=== PATIENT | male | born 1960 | race Caucasian/White ===

== ENCOUNTER → 2016-09-19 | Outpatient (CLI) | payer MEDICARE, OTHER | LOC: VM.CT 15:08 | PROVIDERS: ATTEND Family Medicine | DX: M25.512 Pain in left shoulder (principal) | CPT/HCPCS: 73200-LT ==

== ENCOUNTER 2017-03-19 11:23 | Emergency (ER) | payer MEDICARE, OTHER ==
--- NOTE | 2017-03-19 11:28 | EDM.PDOC ---
ED HPI GENERAL MEDICAL PROBLEM - General Chief Complaint: Abdominal Pain Stated Complaint: stomach Time Seen by Provider: 03/19/17 11:27 Source of Information: Reports: Patient, RN, RN Notes Reviewed History Limitations: Reports: No Limitations - History of Present Illness INITIAL COMMENTS - FREE TEXT/NARRATIVE: Patient presents to the ED at [facility] with an acute onset of centralized abdominal pain that started ~2 hours ago. Patient states his pain started shortly after he ate breakfast this AM. No previous abdominal injury or trauma. Patient has a history of umbilical hernia surgery several years ago. Patient complains of significant sweating. He does feel nauseated at times, but no vomiting. No diarrhea. Patient denies any chest pain. He feels somewhat SOB from the abdominal pain. Onset: Today, Sudden Onset Date: 03/19/17 Onset Time: 09:30 Duration: Constant, Getting Worse Location: Reports: Abdomen Quality: Reports: Pressure, Throbbing Severity: Severe Improves with: Reports: None Worsens with: Reports: Eating, Movement Context: Denies: Activity, Exercise, Lifting, Sick Contact, Trauma Associated Symptoms: Reports: Nausea/Vomiting Treatments STONE FINISHER: Reports: Other (see below) (none) - Related Data Allergies Allergy/AdvReac Type Severity Reaction Status Date / Time No Known Allergies Allergy Verified 03/19/17 11:30 Home Meds: Home Meds Tamsulosin HCl [Flomax] 0.4 mg PO DAILY #7 cap.er.24h 03/19/17 [Rx] ED ROS GENERAL - Review of Systems Review Of Systems: See Below Constitutional: Reports: Diaphoresis. Denies: Fever, Chills, Weakness Respiratory: Denies: Shortness of Breath, Cough Cardiovascular: Denies: Chest Pain, Palpitations GI/Abdominal: Reports: Abdominal Pain, Distension, Nausea. Denies: Black Stool , Bloody Stool, Diarrhea, Vomiting Skin: Reports: Diaphoresis Neurological: Denies: Dizziness, Headache ED EXAM, GI/ABD - Physical Exam Exam: See Below Exam Limited By: No Limitations General Appearance: Alert, Moderate Distress, Obese Respiratory/Chest: No Respiratory Distress, Lungs Clear, Decreased Breath Sounds Cardiovascular: Regular Rate, Rhythm GI/Abdominal: Hypoactive Bowel Sounds, Tenderness, Guarding, Rigidity Neurological: Alert, Oriented Skin Exam: Intact, Normal Color, No Rash, Diaphoretic EKG INTERPRETATION EKG Date: 03/19/17 Time: 11:38 Rhythm: NSR Rate (Beats/Min): 65 [place]: Normal P-Wave: Present QRS: Normal ST-T: Normal QT: Normal CT/PQ Interval: 0.18 Comparison: NA - No Prior EKG EKG Interpretation Comments: 1. Sinus Rhythm 2. IVCD (110+ mS QRS duration) Course - Vital Signs Last Recorded V/S: Last Vital Signs Temp 35.0 C L 03/19/17 12:16 Pulse 68 03/19/17 12:16 Resp 14 03/19/17 12:16 BP 130/86 03/19/17 12:16 Pulse Ox 98 03/19/17 12:16 - Orders/Labs/Meds Orders: Active Orders 24 hr Category Date Time Status EKG 12 Lead [EKG Documentation Completion] [RC] STAT Care 03/19/17 11:31 Active Abdomen Pelvis w Cont [CT] Stat Exams 03/19/17 11:32 Taken Sodium Chloride 0.9% [Normal Saline] 100 ml Med 03/19/17 12:15 Active IV ASDIRECTED Sodium Chloride 0.9% [Saline Flush] Med 03/19/17 11:33 Active 10 ml FLUSH ASDIRECTED PRN Peripheral IV Insertion Adult [OM.PC] Routine Oth 03/19/17 11:33 Ordered Medication Orders Sodium Chloride (Normal Saline) 100 mls @ 3 mls/sec IV ASDIRECTED KAREN Last Admin: 03/19/17 12:40 Dose: 3 mls/sec Sodium Chloride (Saline Flush) 10 ml FLUSH ASDIRECTED PRN PRN Reason: Keep Vein Open Labs: Laboratory Tests 03/19/17 03/19/17 03/19/17 Range/Units 11:50 11:50 11:50 WBC 5.8 (4.0-10.0) x10^3/uL RBC 4.86 (4.5-6.0) x10^6/uL Hgb 14.9 (14.0-18.0) g/dL Hct 44.0 (40.0-52.0) % MCV 90.5 (78.0-93.0) fL MCH 30.7 (26.0-32.0) pg MCHC 33.9 (32.0-36.0) g/dL RDW Coeff of Mirtha 14.2 (10.0-15.0) % Plt Count 201 (130-400) x10^3/uL Neut % (Auto) 78.6 (50.0-80.0) % Lymph % (Auto) 14.4 L (25.0-50.0) % [place] % (Auto) 4.2 (2.0-11.0) % Eos % (Auto) 2.3 (0.0-4.0) % Baso % (Auto) 0.5 (0.2-1.2) % Sodium 142 (136-145) mmol/L Potassium 4.2 (3.5-5.1) mmol/L Chloride 104 (98-107) mmol/L Carbon Dioxide 30 (21-32) mmol/L BUN 16 (7-18) mg/dL Creatinine 1.1 (0.70-1.30) mg/dL Est Cr Clr Drug Dosing TNP Estimated GFR (MDRD) > 60 Glucose 171 H (74-106) mg/dL Lactic Acid 1.1 (0.4-2.0) mmol/L Calcium 8.8 (8.5-10.1) mg/dL Corrected Calcium 8.80 (8.5-10.1) mg/dL Total Bilirubin 0.6 (0.2-1.0) mg/dL AST 24 (15-37) U/L ALT 34 (16-63) U/L Alkaline Phosphatase 95 (46-116) U/L Creatine Kinase 151 (39-308) U/L Creatine Kinase Index 1.7 (0.0-4.0) % CK-MB (CK-2) 2.5 (0.0-3.6) ng/mL POC Troponin I (0.00-0.08) ng/mL C-Reactive Protein 0.5 (<=0.9) mg/dL Total Protein 7.6 (6.4-8.2) g/dL Albumin 4.0 (3.4-5.0) g/dL Globulin 3.6 Albumin/Globulin Ratio 1.11 Amylase 44 (25-115) U/L Lipase 103 (73-393) U/L Urine Color (YELLOW) Urine Appearance (CLEAR) Urine pH (5.0-8.0) Ur Specific [place] Urine Protein (NEGATIVE) mg/dL Urine Glucose (UA) (NEGATIVE) mg/dL Urine Ketones (NEGATIVE) mg/dL Urine Occult Blood (NEGATIVE) Urine Nitrite (NEGATIVE) Urine Bilirubin (NEGATIVE) Urine Urobilinogen (0.2) EU/dL Ur Leukocyte Esterase (NEGATIVE) Urine RBC (NOT SEEN) /HPF Urine WBC (NOT SEEN) /HPF Ur Squamous Epith Cells (NEGATIVE) /HPF Urine Bacteria (NEGATIVE) /HPF Urine Mucus (NEGATIVE) /LPF 03/19/17 03/19/17 Range/Units 11:54 12:50 WBC (4.0-10.0) x10^3/uL RBC (4.5-6.0) x10^6/uL Hgb (14.0-18.0) g/dL Hct (40.0-52.0) % MCV (78.0-93.0) fL MCH (26.0-32.0) pg MCHC (32.0-36.0) g/dL RDW Coeff of Mirtha (10.0-15.0) % Plt Count (130-400) x10^3/uL Neut % (Auto) (50.0-80.0) % Lymph % (Auto) (25.0-50.0) % [place] % (Auto) (2.0-11.0) % Eos % (Auto) (0.0-4.0) % Baso % (Auto) (0.2-1.2) % Sodium (136-145) mmol/L Potassium (3.5-5.1) mmol/L Chloride (98-107) mmol/L Carbon Dioxide (21-32) mmol/L BUN (7-18) mg/dL Creatinine (0.70-1.30) mg/dL Est Cr Clr Drug Dosing Estimated GFR (MDRD) Glucose (74-106) mg/dL Lactic Acid (0.4-2.0) mmol/L Calcium (8.5-10.1) mg/dL Corrected Calcium (8.5-10.1) mg/dL Total Bilirubin (0.2-1.0) mg/dL AST (15-37) U/L ALT (16-63) U/L Alkaline Phosphatase (46-116) U/L Creatine Kinase (39-308) U/L Creatine Kinase Index (0.0-4.0) % CK-MB (CK-2) (0.0-3.6) ng/mL POC Troponin I 0.00 (0.00-0.08) ng/mL C-Reactive Protein (<=0.9) mg/dL Total Protein (6.4-8.2) g/dL Albumin (3.4-5.0) g/dL Globulin Albumin/Globulin Ratio Amylase (25-115) U/L Lipase (73-393) U/L Urine Color Dark yellow H (YELLOW) Urine Appearance Slightly cloudy H (CLEAR) Urine pH 5.5 (5.0-8.0) Ur Specific [place] >=1.030 Urine Protein Negative (NEGATIVE) mg/dL Urine Glucose (UA) Negative (NEGATIVE) mg/dL Urine Ketones Trace H (NEGATIVE) mg/dL Urine Occult Blood Small H (NEGATIVE) Urine Nitrite Negative (NEGATIVE) Urine Bilirubin Negative (NEGATIVE) Urine Urobilinogen 0.2 (0.2) EU/dL Ur Leukocyte Esterase Negative (NEGATIVE) Urine RBC 0-5 (NOT SEEN) /HPF Urine WBC 0-5 (NOT SEEN) /HPF Ur Squamous Epith Cells Not seen (NEGATIVE) /HPF Urine Bacteria Not seen (NEGATIVE) /HPF Urine Mucus Many H (NEGATIVE) /LPF Meds: Medications Generic Name Dose Route Start Last Admin Trade Name Freq PRN Reason Stop Dose Admin Sodium Chloride 100 mls @ 3 mls/sec 03/19/17 12:15 03/19/17 12:40 Normal Saline IV 3 mls/sec ASDIRECTED KAREN Administration Sodium Chloride 10 ml 03/19/17 11:33 Saline Flush FLUSH ASDIRECTED PRN Keep Vein Open Discontinued Medications Generic Name Dose Route Start Last Admin Trade Name Freq PRN Reason Stop Dose Admin Sodium Chloride 1,000 mls @ 999 mls/hr 03/19/17 11:33 03/19/17 11:49 Normal Saline IV 03/19/17 12:33 999 mls/hr ONETIME ONE Administration Iopamidol 100 ml 03/19/17 12:08 03/19/17 12:39 Isovue-300 (61%) IVPUSH 03/19/17 12:09 100 ml ONETIME ONE Administration Metoclopramide HCl 10 mg 03/19/17 11:33 03/19/17 11:50 Reglan IVPUSH 03/19/17 11:34 10 mg ONETIME ONE Administration Morphine Sulfate 2 mg 03/19/17 11:34 03/19/17 11:51 Morphine IVPUSH 03/19/17 11:35 2 mg ONETIME ONE Administration Ondansetron HCl 4 mg 03/19/17 11:33 03/19/17 11:49 Zofran IVPUSH 03/19/17 11:34 4 mg ONETIME ONE Administration - Radiology Interpretation Free Text/Narrative:: CT Abd/Pelvis: 4mm distal right ureteral calculus at the UVJ with mild hydronephrosis - See scanned report in EMR CT Results Date: 03/19/17 CT Results Time: 13:56 Departure - Departure Time of Disposition: 14:07 Disposition: Home, Self-Care 01 Condition: Good Clinical Impression: Kidney stone on right side - Discharge Information Instructions: Kidney Stones, Low-Purine Diet Referrals: Luis E Cole MD [Physician] - Forms: ED Department Discharge Additional Instructions: 1. Stay well hydrated and rest 2. Take medications for the full coarse, even if you are feeling better 3. Eat a low-purine diet 4. Avoid Advil/Aleve; use Tylenol and pain meds as needed 5. See your Primary next week for a follow up exam and testing - Problem List Review Problem List Initiated/Reviewed/Updated: Yes - My Orders Last 24 Hours: My Active Orders 03/19/17 11:31 EKG 12 Lead [EKG Documentation Completion] [RC] STAT 03/19/17 11:32 Abdomen Pelvis w Cont [CT] Stat 03/19/17 11:33 Sodium Chloride 0.9% [Saline Flush] 10 ml FLUSH ASDIRECTED PRN Peripheral IV Insertion Adult [OM.PC] Routine 03/19/17 12:15 Sodium Chloride 0.9% [Normal Saline] 100 ml IV ASDIRECTED - Assessment/Plan Last 24 Hours: My Active Orders 03/19/17 11:31 EKG 12 Lead [EKG Documentation Completion] [RC] STAT 03/19/17 11:32 Abdomen Pelvis w Cont [CT] Stat 03/19/17 11:33 Sodium Chloride 0.9% [Saline Flush] 10 ml FLUSH ASDIRECTED PRN Peripheral IV Insertion Adult [OM.PC] Routine 03/19/17 12:15 Sodium Chloride 0.9% [Normal Saline] 100 ml IV ASDIRECTED
[2017-03-19] MEDS ORDERED: Metoclopramide 10 MG/2 ML SDV IVPUSH ONE (11:33)
[2017-03-19] MEDS ORDERED: Ondansetron 4 MG/2 ML SDV IVPUSH ONE (11:33)
[2017-03-19] MEDS ORDERED: Sodium Chloride 0.9% 1,000 ML IV ONE (11:33)
[2017-03-19] MEDS ORDERED: Sodium Chloride 0.9% 10 ML Syringe FLUSH PRN (11:33)
[2017-03-19] MEDS ORDERED: Morphine 2 MG/ML Syringe IVPUSH ONE (11:34)
[2017-03-19] MEDS ORDERED: Iopamidol 612 MG/ML 100 ML Bottle IVPUSH ONE (12:08)
[2017-03-19] MEDS ORDERED: Sodium Chloride 0.9% 100 ML IV SCH (12:15)
[2017-03-19 12:17] VITALS: BP 130/86
[2017-03-19 12:28] LABS: CHLORIDE,CL 104 mmol/L (98-107); SODIUM,NA 142 mmol/L (136-145)
[2017-03-19] MEDS ORDERED: Take Home: traMADol 50 MG, 4 Tab Pack PO ONE (14:10)
[2017-03-19] MEDS ORDERED: Tamsulosin 0.4 MG Cap.ER ONE (14:21)
== END 2017-03-19 14:26 | disposition home or self-care (01) ==
LOC: VM.ED 11:23
DX: N13.2 Hydronephrosis with renal and ureteral calculous obstruction (principal); Z87.19 Personal history of other diseases of the digestive system; R06.02 Shortness of breath; Z79.899 Other long term (current) drug therapy
CPT/HCPCS: 36415; 74177; 80053; 81001; 82150; 82550; 82553; 83605; 83690; 84484; 85025; 86140; 93005; 96361; 96374; 96375; 99284; A9270; J2270; J2405; J2765; J7030; J7050; Q9967

== ENCOUNTER 2021-04-24 06:00 | Emergency (ER) | payer OTHER, MEDICARE ==
[2021-04-24] MEDS ORDERED: Sodium Chloride 0.9% 10 ML Syringe FLUSH PRN (06:29)
--- NOTE | 2021-04-24 06:41 | EDM.PDOC ---
<Miriam Franco - Last Filed: 04/24/21 06:42> ED HPI GENERAL MEDICAL PROBLEM - General Chief Complaint: Neuro Symptoms/Deficits Stated Complaint: dizzy Time Seen by Provider: 04/24/21 06:19 Source of Information: Reports: Patient History Limitations: Reports: No Limitations - History of Present Illness INITIAL COMMENTS - FREE TEXT/NARRATIVE: Patient comes into the emergency department on his own with complaints of dizziness and falling down this morning. Patient states that he was not feeling well when he woke up this morning called his boss however his boss had stated that he did need to come in. He states that he did get dressed and ready for work and drove to work when he was trying to get out of his vehicle to get another vehicle with a coronado he ended up falling on the ground because he Became extremely dizzy, blurred vision, and fell over. It is unknown how long the patient has not been feeling well. When asking the patient he states that he did not feel well last night when he went to bed. While in another conversation the patient states that he felt well when he woke up. Patient does not have any family or close relatives with him today to understand patient's baseline. Patient denies any pain, chest pain, active shortness of breath, Nausea, vomiting, genitourinary concerns, peripheral edema. Patient states he is been relatively healthy and has no other major concerns or complaints. Quality: Reports: Other Severity: Mild Improves with: Reports: None Worsens with: Reports: None Associated Symptoms: Reports: No Other Symptoms - Related Data Allergies Allergy/AdvReac Type Severity Reaction Status Date / Time No Known Allergies Allergy Verified 04/24/21 08:13 Home Meds: Home Meds Insulin Glargine,Hum.Rec.Anlog [Touarti Solostar] 24 unit SQ DAILY 04/24/21 [History] Meclizine [Antivert] 25 mg PO TID PRN #15 tab 04/24/21 [Rx] Past Medical History - Past Health History Medical/Surgical History: Denies Medical/Surgical History ED ROS GENERAL - Review of Systems Review Of Systems: Comprehensive ROS is negative, except as noted in HPI. Constitutional: Reports: No Symptoms HEENT: Reports: No Symptoms Respiratory: Reports: No Symptoms Cardiovascular: Reports: No Symptoms Endocrine: Reports: No Symptoms GI/Abdominal: Reports: No Symptoms : Reports: No Symptoms Musculoskeletal: Reports: No Symptoms Skin: Reports: No Symptoms Neurological: Reports: Dizziness, Headache, Trouble Speaking (unknown what is normal) Psychiatric: Reports: No Symptoms Hematologic/Lymphatic: Reports: No Symptoms Immunologic: Reports: No Symptoms ED EXAM, GENERAL - Physical Exam Exam: See Below General Appearance: Alert, WD/WN, No Apparent Distress Eye Exam: Bilateral Eye: EOMI, PERRL Ears: Normal External Exam, Normal Canal Ear Exam: Bilateral Ear: Auricle Normal, Canal Normal, TM normal Head: Atraumatic, Normocephalic Neck: Normal Inspection, Supple, Non-Tender, Full Range of Motion Respiratory/Chest: No Respiratory Distress, Lungs Clear, Normal Breath Sounds, No Accessory Muscle Use, Chest Non-Tender Cardiovascular: Normal Peripheral Pulses, Regular Rate, Rhythm, No Edema Back Exam: Normal Inspection, Full Range of Motion Extremities: Normal Inspection, Normal Range of Motion, Non-Tender, No Pedal Edema, Normal Capillary Refill Neurological: Alert, Oriented Psychiatric: Normal Affect, Normal Mood Skin Exam: Warm, Dry, Intact, Normal Color #1 Interpretation Rhythm: NSR [place]: Normal P-Wave: Present QRS: Normal ST-T: Normal QT: Normal Comparison: NA - No Prior EKG Departure - Departure Disposition: Home, Self-Care 01 Clinical Impression: Dehydration, Hyperglycemia due to diabetes mellitus, Hypokalemia - Discharge Information Prescriptions: Meclizine [Antivert] 25 mg PO TID PRN #15 tab PRN Reason: Dizziness Instructions: Hypokalemia, Dehydration, Adult, [id number], Hyperglycemia, [id number], Dizziness Referrals: Jose Rafael Joaquin PA-C [Primary Care Provider] - (You have an appointment to day at 4:30. Arrive a few minutes early and wear a mask. ) Forms: ED Department Discharge, ED Return to Work/School Form Additional Instructions: You were evaluated today for dizziness with labs, urine and head CT scan. You did not have a stroke. It was found that your thyroid is slightly elevated and T3 and T4 test are pending. You were dehydrated and your glucose was high along with your potassium being slightly low. We gave you two liters of fluid, 20 meq of oral potassium and meclizine for the dizziness. You are given a prescription of meclizine to be taken three times a day as needed for dizziness. You need to drink more fluids. rest today and tomorrow and can return to work if feeling better on Saturday. You have an appointment with your PA, Jose Rafael today at 4:30 at the clinic. Take the copy of your labs with. You need to restart your medications as determined by Jose Rafael and do not stop them again. - Assessment/Plan Assessment:: 1. stroke code 2. dizzy 3. Blurred vision Plan: 1. Stroke code 2. Labs completed in the ER. Results reviewed with the patient 3. IV initiated in the emergency department 4. NIH Scale- [address] scan of head completed in ER. Results reviewed 6. Report Completed with Maria Fernanda DUNCAN who will assume care <Maria Fernanda Cohn - Last Filed: 04/24/21 08:33> ED HPI GENERAL MEDICAL PROBLEM - History of Present Illness INITIAL COMMENTS - FREE TEXT/NARRATIVE: Change of shift and took over care at 07:00. Patient history is that he has been feeling dizzy intermittantly for the last several days. He denies any head injury, not on a blood thinner. States that the dizziness is spinning and better if he closes his eyes. Has a slight headache at the frontal area and states his vision feels blurry at times. He does state yesterday he felt ill with the dizziness, Today when he awoke and did not feel well due to the dizziness. He tried to call in ill to work but they told him to come in. 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 He managed to get out of the car, but then the dizziness made his fall over. Called his co worker and they helped him get into his car and he drove here. States he has been taking his diabetes medications, but can not test his blood sugar due to broken meter. Has not seen his physician in over a year or taken other medications due to concerns for Covid 19. He has not had covid, nor had the vaccine. He states he feels his speech is baseline, always struggles with some words and talks with a lisp. Oriented x 4. main concern is the dizziness Improves with: Reports: Other (closing his eyes) Worsens with: Reports: Movement Associated Symptoms: Reports: Headaches Past Medical History HEENT History: Reports: Hard of Hearing, Sinusitis Cardiovascular History: Reports: High Cholesterol, Hypertension, Other (See Below) (varicose veins) Respiratory History: Reports: Other (See Below) (daiphragmatic hernia) Gastrointestinal History: Reports: Diverticulosis, GERD, PUD Musculoskeletal History: Reports: Other (See Below) (left rotator cuff tear) Neurological History: Reports: Other (See Below) (intellectual disability, history of dizziness) Endocrine/Metabolic History: Reports: Diabetes, Type II - Past Surgical History GI Surgical History: Reports: Colonoscopy, EGD, Hernia, Abdominal (umbilical) Musculoskeletal Surgical History: Reports: Arthroscopic Procedure (left shoulder x 2), Other (See Below) (rigth plantar fasciotomy) Other Musculoskeletal Surgeries/Procedures:: laset of left greater saphneous vein Social & Family History - Tobacco Use Tobacco Use Status *Q: Never Tobacco User - Alcohol Use Alcohol Use History: No Alcohol Use in Last Twelve Months: No - Recreational Drug Use Recreational Drug Use: No Drug Use in Last 12 Months: No - Living Situation & Occupation Living situation: Reports: Single, Alone Occupation: Employed ED EXAM, GENERAL - Physical Exam Eye Exam: Bilateral Eye: EOMI, Normal Inspection, PERRL, Other (no nystagmus) Ears: Normal TMs, Hearing Loss Nose: Normal Inspection, Normal Mucosa Throat/Mouth: Normal Inspection, Normal Lips, Normal Teeth, Normal Voice, Other (mild dry mucous membranes) Head: Atraumatic, Normocephalic. No: Sinus Tenderness Neck: Normal Inspection, Supple, Non-Tender, Full Range of Motion Respiratory/Chest: No Respiratory Distress, Lungs Clear, Normal Breath Sounds, No Accessory Muscle Use, Chest Non-Tender Cardiovascular: Normal Peripheral Pulses, Regular Rate, Rhythm, No Edema Peripheral Pulses: 4+: Carotid (L), Carotid (R), Brachial (L), Brachial (R) GI/Abdominal: Normal Bowel Sounds, Soft, Non-Tender, No Organomegaly, No Distention, No Abnormal Bruit, No Mass. No: Rigid, Rebound (Male) Exam: Deferred Back Exam: Normal Inspection, Full Range of Motion, Other. No: CVA Tenderness (L), CVA Tenderness (R) Extremities: Normal Inspection, Normal Range of Motion, No Pedal Edema, Normal Capillary Refill, Other (normal cook fruit strength in the upper extremities, normal push pull, normal opposition thumb to second and fifth finger. normal strength in the lower extremities, normal plantar and dorsiflexion bialterally) Neurological: Alert, Oriented (x 4), CN II-XII Intact (very minimal right cheek weakness to puffing out cheeks, no facial droop at 07:00), Other (speech is with a lisp, patient states is normal. STates he struggles with word finding at times. Unable to repeat " no if's ands or buts" and " you can't teach an old dog new tricks". Normal sensation to light touch bilaterally.). No: Sensory/Motor Deficit (pronator drift with mild left arm drift however IV in the AC here, normal finger to nose with eyes closed, normal JUAN, normal heel to gutierrez) Psychiatric: Normal Affect, Normal Mood Skin Exam: Warm, Dry, Intact, Normal Color #1 Interpretation EKG Date: 04/24/21 Time: 06:01 Rate (Beats/Min): 74 QRS: Other (slight delay, Not bundle branch) Course - Orders/Labs/Meds Orders: Active Orders 24 hr Category Date Time Status Assess Neurological Status [RC] CONTINUOUS Care 04/24/21 06:29 Active Blood Glucose Check, Bedside [RC] STAT Care 04/24/21 06:29 Active Cardiac Monitoring [RC] CONTINUOUS Care 04/24/21 06:29 Active Communication Order [RC] STAT Care 04/24/21 06:29 Active EKG Documentation Completion [RC] STAT Care 04/24/21 06:28 Active Height and Weight [RC] UPON Care 04/24/21 06:29 Active NIH Stroke Scale [RC] Q15M Care 04/24/21 06:29 Active NIH Stroke Scale [RC] STAT Care 04/24/21 06:29 Active Oxygen Therapy, ED [RC] ASDIRECTED Care 04/24/21 06:29 Active Vital Signs [RC] Q15M Care 04/24/21 06:29 Active Ang Neck [CT] Stat Exams 04/24/21 Ordered FREE T3 [REF] Stat Lab 04/24/21 06:16 Received OSMOLALITY - URINE Stat Lab 04/24/21 07:30 Received THYROXINE (T4) [REF] Stat Lab 04/24/21 06:16 Received Sodium Chloride 0.9% [Normal Saline] 1,000 ml Med 04/24/21 08:00 Active IV ASDIRECTED Sodium Chloride 0.9% [Saline Flush] Med 04/24/21 06:29 Active 10 ml FLUSH ASDIRECTED PRN Peripheral IV Insertion Adult [OM.PC] Stat Oth 04/24/21 06:28 Ordered Resuscitation Status Stat Resus Stat 04/24/21 06:29 Ordered Medication Orders Sodium Chloride (Normal Saline) 1,000 mls @ 1,000 mls/hr IV ASDIRECTED KAREN Last Admin: 04/24/21 08:04 Dose: 1,000 mls/hr Documented by: EULALIA Sodium Chloride (Sodium Chloride 0.9% 10 Ml Syringe) 10 ml FLUSH ASDIRECTED PRN PRN Reason: Keep Vein Open Labs: Laboratory Tests 04/24/21 04/24/21 04/24/21 Range/Units 06:16 06:16 06:16 WBC 3.6 L (4.0-10.0) x10^3/uL RBC 4.95 (4.5-6.0) x10^6/uL Hgb 15.5 (14.0-18.0) g/dL Hct 43.9 (40.0-52.0) % MCV 88.7 (78.0-93.0) fL MCH 31.3 (26.0-32.0) pg MCHC 35.3 (32.0-36.0) g/dL RDW Coeff of Mirtha 13.9 (10.0-15.0) % Plt Count 202 (130-400) x10^3/uL Neut % (Auto) 58.0 (50.0-80.0) % Lymph % (Auto) 29.7 (25.0-50.0) % Wayne % (Auto) 8.1 (2.0-11.0) % Eos % (Auto) 3.6 (0.0-4.0) % Baso % (Auto) 0.6 (0.2-1.2) % PT 9.8 L (9.9-12.5) SEC INR 0.9 L (2.0-3.5) APTT (25.6-32.8) SEC Sodium 135 L (136-145) mmol/L Potassium 3.3 L (3.5-5.1) mmol/L Chloride 101 (98-107) mmol/L Carbon Dioxide 27 (21-32) mmol/L Anion Gap 10.3 (5-15) mmol/L BUN 8 (7-18) mg/dL Creatinine 0.8 (0.70-1.30) mg/dL Est Cr Clr Drug Dosing TNP Estimated GFR (MDRD) > 60 Glucose 301 H (70-99) mg/dL POC Glucose (70-99) mg/dL Calcium 8.2 L (8.5-10.1) mg/dL Corrected Calcium 8.6 (8.5-10.1) mg/dL Total Bilirubin 0.8 (0.2-1.0) mg/dL AST 21 (15-37) U/L ALT 26 (16-63) U/L Alkaline Phosphatase 124 H (46-116) U/L Troponin I High Sens 8 (<=76) ng/L Total Protein 7.0 (6.4-8.2) g/dL Albumin 3.5 (3.4-5.0) g/dL Globulin 3.5 Albumin/Globulin Ratio 1.00 TSH, Ultra Sensitive (0.358-3.74) uIU/mL Urine Color (YELLOW) Urine Appearance (CLEAR) Urine pH (5.0-8.0) Ur Specific [place] Urine Protein (NEGATIVE) mg/dL Urine Glucose (UA) (NEGATIVE) mg/dL Urine Ketones (NEGATIVE) mg/dL Urine Occult Blood (NEGATIVE) Urine Nitrite (NEGATIVE) Urine Bilirubin (NEGATIVE) Urine Urobilinogen (0.2) EU/dL Ur Leukocyte Esterase (NEGATIVE) 04/24/21 04/24/21 04/24/21 Range/Units 06:16 06:16 06:21 WBC (4.0-10.0) x10^3/uL RBC (4.5-6.0) x10^6/uL Hgb (14.0-18.0) g/dL Hct (40.0-52.0) % MCV (78.0-93.0) fL MCH (26.0-32.0) pg MCHC (32.0-36.0) g/dL RDW Coeff of Mirtha (10.0-15.0) % Plt Count (130-400) x10^3/uL Neut % (Auto) (50.0-80.0) % Lymph % (Auto) (25.0-50.0) % Wayne % (Auto) (2.0-11.0) % Eos % (Auto) (0.0-4.0) % Baso % (Auto) (0.2-1.2) % PT (9.9-12.5) SEC INR (2.0-3.5) APTT 23.6 L (25.6-32.8) SEC Sodium (136-145) mmol/L Potassium (3.5-5.1) mmol/L Chloride (98-107) mmol/L Carbon Dioxide (21-32) mmol/L Anion Gap (5-15) mmol/L BUN (7-18) mg/dL Creatinine (0.70-1.30) mg/dL Est Cr Clr Drug Dosing Estimated GFR (MDRD) Glucose (70-99) mg/dL POC Glucose 285 H (70-99) mg/dL Calcium (8.5-10.1) mg/dL Corrected Calcium (8.5-10.1) mg/dL Total Bilirubin (0.2-1.0) mg/dL AST (15-37) U/L ALT (16-63) U/L Alkaline Phosphatase (46-116) U/L Troponin I High Sens (<=76) ng/L Total Protein (6.4-8.2) g/dL Albumin (3.4-5.0) g/dL Globulin Albumin/Globulin Ratio TSH, Ultra Sensitive 3.806 H (0.358-3.74) uIU/mL Urine Color (YELLOW) Urine Appearance (CLEAR) Urine pH (5.0-8.0) Ur Specific [place] Urine Protein (NEGATIVE) mg/dL Urine Glucose (UA) (NEGATIVE) mg/dL Urine Ketones (NEGATIVE) mg/dL Urine Occult Blood (NEGATIVE) Urine Nitrite (NEGATIVE) Urine Bilirubin (NEGATIVE) Urine Urobilinogen (0.2) EU/dL Ur Leukocyte Esterase (NEGATIVE) 04/24/21 Range/Units 07:30 WBC (4.0-10.0) x10^3/uL RBC (4.5-6.0) x10^6/uL Hgb (14.0-18.0) g/dL Hct (40.0-52.0) % MCV (78.0-93.0) fL MCH (26.0-32.0) pg MCHC (32.0-36.0) g/dL RDW Coeff of Mirtha (10.0-15.0) % Plt Count (130-400) x10^3/uL Neut % (Auto) (50.0-80.0) % Lymph % (Auto) (25.0-50.0) % [place] % (Auto) (2.0-11.0) % Eos % (Auto) (0.0-4.0) % Baso % (Auto) (0.2-1.2) % PT (9.9-12.5) SEC INR (2.0-3.5) APTT (25.6-32.8) SEC Sodium (136-145) mmol/L Potassium (3.5-5.1) mmol/L Chloride (98-107) mmol/L Carbon Dioxide (21-32) mmol/L Anion Gap (5-15) mmol/L BUN (7-18) mg/dL Creatinine (0.70-1.30) mg/dL Est Cr Clr Drug Dosing Estimated GFR (MDRD) Glucose (70-99) mg/dL POC Glucose (70-99) mg/dL Calcium (8.5-10.1) mg/dL Corrected Calcium (8.5-10.1) mg/dL Total Bilirubin (0.2-1.0) mg/dL AST (15-37) U/L ALT (16-63) U/L Alkaline Phosphatase (46-116) U/L Troponin I High Sens (<=76) ng/L Total Protein (6.4-8.2) g/dL Albumin (3.4-5.0) g/dL Globulin Albumin/Globulin Ratio TSH, Ultra Sensitive (0.358-3.74) uIU/mL Urine Color Yellow (YELLOW) Urine Appearance Clear (CLEAR) Urine pH 7.0 (5.0-8.0) Ur Specific [place] 1.015 Urine Protein Negative (NEGATIVE) mg/dL Urine Glucose (UA) 500 H (NEGATIVE) mg/dL Urine Ketones 15 H (NEGATIVE) mg/dL Urine Occult Blood Negative (NEGATIVE) Urine Nitrite Negative (NEGATIVE) Urine Bilirubin Negative (NEGATIVE) Urine Urobilinogen 2.0 H (0.2) EU/dL Ur Leukocyte Esterase Negative (NEGATIVE) Meds: Medications Generic Name Dose Route Start Last Admin Trade Name Carol PRN Reason Stop Dose Admin Sodium Chloride 1,000 mls @ 1,000 mls/hr 04/24/21 08:00 04/24/21 08:04 Normal Saline IV 1,000 mls/hr ASDIRECTED KAREN Administration Sodium Chloride 10 ml 04/24/21 06:29 Sodium Chloride 0.9% 10 Ml Syringe FLUSH ASDIRECTED PRN Keep Vein Open Discontinued Medications Generic Name Dose Route Start Last Admin Trade Name Freq PRN Reason Stop Dose Admin Sodium Chloride 1,000 mls @ 1,000 mls/hr 04/24/21 06:54 04/24/21 06:55 Normal Saline IV 04/24/21 07:53 1,000 mls/hr ONETIME ONE Administration Meclizine HCl 25 mg 04/24/21 07:22 04/24/21 07:39 Meclizine 25 Mg Tab PO 04/24/21 07:23 25 mg ONETIME ONE Administration Potassium Chloride 20 meq 04/24/21 07:59 04/24/21 08:06 Potassium Chloride 10 Meq Tab.Er PO 04/24/21 08:00 20 meq ONETIME ONE Administration - Radiology Interpretation Free Text/Narrative:: Ct head non contrast, no acute, CT head angio negative and neck angio no large vessel occlusion, mild artheroscleroitc calcifications of both carotid bulbs,no stenosis , exams are limited interpreted by radiology - Re-Assessments/Exams Free Text/Narrative Re-Assessment/Exam: 04/24/21 07:10 Care taken over ath change of shift, labs already done, iv fluids started and CT done. Re examination of the patient and chart review from [facility]. Patient has not been to PCP since 04/2020. Multiple medications listed to include ozempic, insulin, atorvastatin, lisinopril, lasix, metformin, omeprazole. Daryl correa tells me he is taking is insulin only Patient has notable intellectual disability. Unsure of his baseline. Notes from [facility] find that he has been struggling with bouts of dizziness since at least early 2019. Has not dm checking his blood glucose regularly, but his A1c was >14 in 2019 and in 2019 was 7.3. Did have notable elevated lipids, but no recent check and not on medication. Patient has lisp with speech but states it is baseline. Feels he is not having speech problems. Does not have facial drop reported by previous provider. Has slight weakness of the right cheek to puffing out cheeks. left arm with slight drift, but the IV is there and he seems to struggle only due to the IV. He does have problems repeating phrases but is very hard of hearing, lip reads a bit and unsure if he is just unable to repeat such phrases on a regular basis. Will give a meclzine, Add a TSH and urine osmol and urine. continue IV fluids. Able to ambulate to the bathroom, but struggles with the gown, manages to give urine sample, but did have problems with keeping the gown out of the stream. Gait normal. 04/24/21 07:55 note initial NIH was 4 and FAST was 2 with a 30% of LVO done by previous provider. Last known well unknown. Not TPA candidate repeat NIH at 7:00 by this provider is 3 and FAst still a 2 but given history unsure of baseline. Awaiting CT angio, c head normal, labs normal with the exception of glucose. 04/24/21 08:10 Patient is doing better. Slight elevated TSH, added Free T3 and T4 for send out. will give second liter of fluid along with meclzine 25 mg po. Negative scans. Made appointment with PCP today at 4:30. Patient needs to restart medications. Departure - Departure Time of Disposition: 08:40 Condition: Good - Discharge Information *PRESCRIPTION DRUG MONITORING PROGRAM REVIEWED*: Not Applicable *COPY OF PRESCRIPTION DRUG MONITORING REPORT IN PATIENT KENRICK: Not Applicable - My Orders Last 24 Hours: My Active Orders 04/24/21 06:16 FREE T3 [REF] Stat THYROXINE (T4) [REF] Stat 04/24/21 07:30 OSMOLALITY - URINE Stat 04/24/21 08:00 Sodium Chloride 0.9% [Normal Saline] 1,000 ml IV ASDIRECTED - Assessment/Plan Last 24 Hours: My Active Orders 04/24/21 06:16 FREE T3 [REF] Stat THYROXINE (T4) [REF] Stat 04/24/21 07:30 OSMOLALITY - URINE Stat 04/24/21 08:00 Sodium Chloride 0.9% [Normal Saline] 1,000 ml IV ASDIRECTED
[2021-04-24 06:48] LABS: CHLORIDE,CL 101 mmol/L (98-107); SODIUM,NA 135 mmol/L (136-145)
[2021-04-24 06:52] LABS: ANION GAP 10.3 mmol/L (5-15)
[2021-04-24] MEDS: Sodium Chloride 0.9% 1,000 ML IV ONE (06:55)
[2021-04-24] MEDS: Iopamidol 755 Mg/ML 100 ML Bottle IVPUSH ONE (07:00)
[2021-04-24] MEDS: Meclizine 25 MG Tab PO ONE (07:39)
--- NOTE | 2021-04-24 07:59 | CT ---
[id number] CT/CT Head WO IV EXAM: CT Head WO IV CLINICAL DATA: DIZZY-STROKE CODE COMPARISON STUDY: None. FINDINGS: No intracranial hemorrhage, extra-axial fluid collection, mass, or acute ischemia. No hydrocephalus. Calvarium intact. Paranasal sinuses and mastoid air cells are clear. IMPRESSION: No acute intracranial findings. Myke Figueroa MD 04/24/21 0757 Thank you for allowing us to participate in the care of your patient.
[2021-04-24] MEDS: Sodium Chloride 0.9% 1,000 ML IV SCH (08:04)
[2021-04-24] MEDS: Potassium Chloride 10 MEQ Tab.ER PO ONE (08:06)
--- NOTE | 2021-04-24 08:06 | CT ---
[id number] CT/CTA Head Exam: CTA Head Clinical Data: NEUROLOGIC DEFICIT COMPARISON: CORRELATION IS MADE WITH THE EARLIER PLAIN CT BRAIN FINDINGS: No large vessel occlusion is seen The entirety of the head was not imaged. There is no high-grade cervical carotid artery stenosis IMPRESSION: NO INTRACRANIAL LARGE VESSEL OCCLUSION LIMITED STUDY CONSIDER FURTHER EXAMS Dante Armendariz MD 04/24/21 0806 Thank you for allowing us to participate in the care of your patient.
== END 2021-04-24 09:05 | disposition home or self-care (01) ==
LOC: VM.ED 06:19
DX: R42 Dizziness and giddiness (principal); H53.8 Other visual disturbances; E11.65 Type 2 diabetes mellitus with hyperglycemia; E86.0 Dehydration; E87.6 Hypokalemia; I10 Essential (primary) hypertension; Z79.4 Long term (current) use of insulin
CPT/HCPCS: 70450; 70496; 70498; 80053; 81003; 82947; 83935; 84436; 84443; 84481; 84484; 85025; 85610; 85730; 93005; 93010; 99284; A9270; J7030; Q9967